=== PATIENT | female | born 1950 | race Caucasian/White ===

== ENCOUNTER → 2023-11-25 17:15 | Outpatient (REF) | payer MEDICARE, SELFPAY ==
[2023-11-25 20:21] LABS: Iron 110 ug/dl (37-170)
[2023-11-25 20:30] LABS: Percent Saturation 28 % (20-50); Total Iron Binding Capacity 380 ug/dl (265-497)
[2023-11-25 20:57] LABS: Ferritin 12.7 ng/ml (11.1-264.0)
== END ==
LOC: CLAB 17:15
PROVIDERS: ATTENDING PHYSICIAN Family Medicine
DX: D64.9 Anemia, unspecified (principal)
CPT/HCPCS: 82728; 83540; 83550

== ENCOUNTER → 2023-12-02 08:48 | Outpatient (REF) | payer MEDICARE, SELFPAY ==
[2023-12-02 09:36] LABS: % Basophils 0.8 % (0-2); % Eosinophils 2.8 % (0-6); % Immature Granulocytes 0.2 % (0-0.5); % Lymphocytes 30.6 % (20.5-51.1); % Monocytes 11.8 % (1.7-9.3); % Neutrophils 53.8 % (42.2-75.2); Absolute Eosinophils 0.2 10^3/uL (0-0.7); Absolute Lymphocytes 1.6 10^3/uL (1.2-3.4); Absolute Monocytes 0.6 10^3/uL (0.1-0.6); Absolute Neutrophils 2.9 10^3/uL (1.4-6.5); Hematocrit 36.9 % (37.0-47.0); Hemoglobin 12.3 g/dL (12.0-16.0); Mean Corp Hgb Conc. 33.3 g/dL (33.0-37.0); Mean Corpuscular Hgb 32.3 pg (27.0-31.0); Mean Corpuscular Volume 96.9 fL (81.0-99.0); Nucleated Red Blood Cells % 0 %; Platelet Count 266 10^3/uL (130-400); Red Blood Cell Count 3.81 10^6/uL (4.20-5.40); Red Cell Dist. Width 13.1 % (11.5-14.5); White Blood Cell Count 5.3 10^3/uL (4.8-10.8)
== END ==
LOC: REG 08:48
PROVIDERS: ATTENDING PHYSICIAN Family Medicine
DX: D64.9 Anemia, unspecified (principal)
CPT/HCPCS: 36415; 85025

== ENCOUNTER → 2023-12-22 15:49 | Outpatient (REF) | payer MEDICARE, SELFPAY ==
[2023-12-22 19:28] LABS: % Basophils 0.6 % (0-2); % Eosinophils 1.5 % (0-6); % Immature Granulocytes 0.4 % (0-0.5); % Lymphocytes 32.7 % (20.5-51.1); % Monocytes 9.1 % (1.7-9.3); % Neutrophils 55.7 % (42.2-75.2); Absolute Eosinophils 0.1 10^3/uL (0-0.7); Absolute Lymphocytes 2.4 10^3/uL (1.2-3.4); Absolute Monocytes 0.7 10^3/uL (0.1-0.6); Hematocrit 39.9 % (37.0-47.0); Hemoglobin 12.6 g/dL (12.0-16.0); Mean Corp Hgb Conc. 31.6 g/dL (33.0-37.0); Mean Corpuscular Hgb 31.4 pg (27.0-31.0); Mean Corpuscular Volume 99.5 fL (81.0-99.0); Mean Platelet Volume 9.2 fL (7.4-10.4); Nucleated Red Blood Cells % 0 %; Platelet Count 341 10^3/uL (130-400); Red Blood Cell Count 4.01 10^6/uL (4.20-5.40); Red Cell Dist. Width 12.9 % (11.5-14.5); White Blood Cell Count 7.2 10^3/uL (4.8-10.8)
== END ==
LOC: CLAB 15:49
PROVIDERS: ATTENDING PHYSICIAN Family Medicine
DX: D64.9 Anemia, unspecified (principal)
CPT/HCPCS: 85025

== ENCOUNTER → 2024-01-21 10:05 | Outpatient (REF) | payer MEDICARE, SELFPAY | LOC: DHCBS HW 10:05 | PROVIDERS: ATTENDING PHYSICIAN Physician Assistant Medical; FAMILY PHYSICIAN Family Medicine | DX: I48.92 Unspecified atrial flutter (principal) | CPT/HCPCS: 93306 ==

== ENCOUNTER → 2024-02-01 09:47 | Outpatient (REF) | payer MEDICARE, SELFPAY | LOC: HWRAD 09:47 | PROVIDERS: ATTENDING PHYSICIAN Internal Medicine Rheumatology; FAMILY PHYSICIAN Family Medicine; REFERRING PHYSICIAN Internal Medicine Hematology & Oncology | DX: Z13.820 Encounter for screening for osteoporosis (principal); M81.0 Age-related osteoporosis without current pathological fracture | CPT/HCPCS: 77080 ==

== ENCOUNTER → 2024-04-08 07:46 | Outpatient (REF) | payer MEDICARE, SELFPAY | LOC: MRI 3T 07:46 | PROVIDERS: ATTENDING PHYSICIAN Orthopaedic Surgery; FAMILY PHYSICIAN Family Medicine | DX: M25.562 Pain in left knee (principal) | CPT/HCPCS: 73721 ==

== ENCOUNTER → 2024-06-03 07:25 | Outpatient (REF) | payer MEDICARE, SELFPAY ==
[2024-06-03 08:19] LABS: % Basophils 0.4 % (0-2); % Eosinophils 4.1 % (0-6); % Immature Granulocytes 0.4 % (0-0.5); % Lymphocytes 34.2 % (20.5-51.1); % Monocytes 11.5 % (1.7-9.3); % Neutrophils 49.4 % (42.2-75.2); Absolute Eosinophils 0.2 10^3/uL (0-0.7); Absolute Lymphocytes 1.7 10^3/uL (1.2-3.4); Absolute Monocytes 0.6 10^3/uL (0.1-0.6); Absolute Neutrophils 2.4 10^3/uL (1.4-6.5); Hematocrit 37.3 % (37.0-47.0); Hemoglobin 12.3 g/dL (12.0-16.0); Mean Corpuscular Hgb 31.1 pg (27.0-31.0); Mean Corpuscular Volume 94.4 fL (81.0-99.0); Mean Platelet Volume 8.9 fL (7.4-10.4); Nucleated Red Blood Cells % 0 %; Platelet Count 283 10^3/uL (130-400); Red Blood Cell Count 3.95 10^6/uL (4.20-5.40); Red Cell Dist. Width 13.8 % (11.5-14.5); White Blood Cell Count 4.9 10^3/uL (4.8-10.8)
[2024-06-03 10:27] LABS: TSH 2.94 uIU/ml (0.47-4.68)
[2024-06-03 10:31] LABS: ALT (SGPT) 19 U/L (0-35); AST (SGOT) 29 U/L (14-36); Albumin 4.2 g/dl (3.5-5.0); Alkaline Phosphatase 63 U/L (38-126); Blood Urea Nitrogen 10 mg/dl (7-17); Calcium 9.7 mg/dl (8.4-10.2); Carbon Dioxide 26 mmol/L (22-30); Chloride 106 mmol/L (98-107); Glucose 101 mg/dl (70-99); HDL Cholesterol 99 mg/dl; LDL Cholesterol, Calculated 113 mg/dl; Potassium 4.1 mmol/L (3.5-5.1); Sodium 139 mmol/L (135-145); Total Bilirubin 0.6 mg/dl (0.2-1.3); Total Cholesterol 237 mg/dl (50-199); Total Protein 6.6 g/dl (6.3-8.2); Triglyceride 125 mg/dl (10-149); Very Low Density Lipoprotein 25 mg/dl (0-30); eGFR > 60.00
[2024-06-03 10:41] LABS: Glycohemoglobin (HgbA1c) 5.8 % (4.0-5.6)
== END ==
LOC: REG 07:25
PROVIDERS: ATTENDING PHYSICIAN Family Medicine; REFERRING PHYSICIAN Internal Medicine Rheumatology
DX: I10 Essential (primary) hypertension (principal); R73.01 Impaired fasting glucose; E78.00 Pure hypercholesterolemia, unspecified; R79.89 Other specified abnormal findings of blood chemistry; D64.9 Anemia, unspecified
CPT/HCPCS: 36415; 80053; 80061; 83036; 84443; 85025

== ENCOUNTER 2024-07-26 08:13 | Inpatient (IN) | payer MEDICARE, SELFPAY ==
[2024-07-06 13:24] VITALS: BMI 27.6
[2024-07-06 14:36] LABS: Hematocrit 37.3 % (37.0-47.0); Hemoglobin 12.2 g/dL (12.0-16.0); Mean Corp Hgb Conc. 32.7 g/dL (33.0-37.0); Mean Corpuscular Hgb 32.3 pg (27.0-31.0); Mean Corpuscular Volume 98.7 fL (81.0-99.0); Mean Platelet Volume 8.9 fL (7.4-10.4); Platelet Count 287 10^3/uL (130-400); Red Blood Cell Count 3.78 10^6/uL (4.20-5.40); Red Cell Dist. Width 13.6 % (11.5-14.5); White Blood Cell Count 5.3 10^3/uL (4.8-10.8)
[2024-07-06 14:51] LABS: ALT (SGPT) 20 U/L (0-35); AST (SGOT) 28 U/L (14-36); Albumin 4.4 g/dl (3.5-5.0); Alkaline Phosphatase 64 U/L (38-126); Blood Urea Nitrogen 15 mg/dl (7-17); Calcium 9.7 mg/dl (8.4-10.2); Carbon Dioxide 23 mmol/L (22-30); Chloride 107 mmol/L (98-107); Estimated Creatinine Clearance 73 ml/min; Glucose 103 mg/dl (70-99); Potassium 4.8 mmol/L (3.5-5.1); Sodium 143 mmol/L (135-145); Total Bilirubin 0.5 mg/dl (0.2-1.3); Total Protein 6.8 g/dl (6.3-8.2); eGFR > 60.00
[2024-07-07 09:03] LABS: Glycohemoglobin (HgbA1c) 5.5 % (4.0-5.6)
--- NOTE | 2024-07-19 13:15 | PTCARENOTE ---
Discussed plan after surgery with patient. Patient requesting [facility] at discharge as she lives alone, son will be coming from out of town to stay with her. Patient inquired about how insurance covers VN and rehab. Patient is anxious regarding
inability to pay for additional help at home and understands she will not likely qualify for rehab stay. She has 1 full flight of stairs into apartment landing and then additional full flight stairs up to apartment.
Patient is aware she will need to make arrangements for OP PT and was reminded to make OP PT appointment as she has not completed at this time. Patient has a borrowed walker and will bring to hospital on day of surgery.
Patient is anticipating [facility] at discharge for VN/PT.
--- NOTE | 2024-07-24 11:36 | VNURNOTE ---
Called patient to explain [facility] services, outpt PT post op her surgery scheduled for 10 SOURAV. No answer, left message. Referral placed in [facility] in case needed.
[2024-07-25 08:38] VITALS: BMI 27.6
[2024-07-26] VITALS (21 sets, daily range): BP systolic 87–159; BP diastolic 62–96; BMI 27.6
[2024-07-26] MEDS: CELEBREX 200 MG PO (08:52)
[2024-07-26] MEDS: TYLENOL 325 MG PO (08:53)
[2024-07-26] MEDS: NORMOSOL-R/PLASMALYTE-A 1000 IV (08:55)
[2024-07-26] MEDS: ROXICODONE 5 MG PO (13:40)
--- NOTE | 2024-07-26 14:31 | W.PN.UPDATE ---
Update Note
Progress Note Update
L knee OA s/p L TKA w/ Dr Burt 07/26/24
DVT prophylaxis - Xarelto at modified dosing, b/l venous foot pumps
- Xarelto 20 mg qPM to be resumed POD 3 if hemodynamically stable
HTN - + parameters - monitor BP
Paroxysmal a fib/a flutter and PVCs - monitor on tele
- Continue Diltiazem
- Xarelto as stated above
GERD and hiatal hernia - add Pepcid HS
Peripheral neuropathy - add Gabapentin TID to accommodate for post-surgical pain
Hypercholesterolemia
MVP
Diverticulosis
Fatty liver disease
DDD
Breast CA s/p L lumpectomy and eventual L mastectomy 2016
Basal cell carcinoma
Choroid melanoma of left eye���
H/o retinal detachment (R-2018, L-12/2023 � s/p surgical repair)
Osteoporosis
Anxiety �
Insomnia
Impaired fasting glucose
LOS COYOTES
[2024-07-26] MEDS: ZOFRAN 4 MG IV (14:59)
[2024-07-26] MEDS: NEURONTIN 200 MG PO (14:59)
[2024-07-26] MEDS: TYLENOL 650 MG PO ×2 (15:00→23:19)
[2024-07-26] MEDS: ANCEF 5 IV (17:00)
[2024-07-26] MEDS: XARELTO 10 MG PO (17:00)
--- NOTE | 2024-07-26 17:14 | CM ---
Met with patient
Multiple concerns with communication pre-op.
IA completed.
Lives alone in [facility] in [place] on the 2nd floor. No elevator, steps to enter, flight of stairs up to apartment.
States that son is not able to stay with her d/t grandson surgery
Stated that she has an outpatient therapy appt in [place] ([facility]) on August 10
Declined PT today -exercises given to patient
PT to evaluate tomorrow and for recommendation-steps?
?LESLIEN in interim until OP
PCP: Braulio Sanchez
Pharmacy: [facility] [id number]
PLAN: ?[facility], outpatient appt Aug 10
[2024-07-26] MEDS: COMPAZINE 5 MG IV (20:30)
[2024-07-26] MEDS: COZAAR 50 MG PO (20:49)
[2024-07-26] MEDS: BACTROBAN 2% OINTMENT 1 APPLIC NASAL (20:50)
[2024-07-26] MEDS: DECADRON 4 MG PO (20:50)
[2024-07-26] MEDS: COLACE 100 MG PO (20:50)
[2024-07-26] MEDS: SENOKOT 17.2 MG PO (20:50)
[2024-07-26] MEDS: TYLENOL PO (20:54)
[2024-07-26] MEDS: NEURONTIN PO (21:00)
[2024-07-26] MEDS: PEPCID 20 MG PO (21:01)
[2024-07-27] MEDS: NEURONTIN PO (00:14)
[2024-07-27] MEDS: VITAMIN D3 (cholecalciferol) PO (00:18)
[2024-07-27] MEDS: NORMOSOL-R/PLASMALYTE-A 1000 IV (00:30)
[2024-07-27] MEDS: ANCEF 5 IV (02:48)
[2024-07-27] MEDS: TYLENOL 650 MG PO ×3 (03:00→12:16)
[2024-07-27 03:24] VITALS: BP 125/66
[2024-07-27 07:12] VITALS: BP 117/68
--- NOTE | 2024-07-27 07:38 | PTCARENOTE ---
Non invasive hgb 11.5 done by night RN Maria Guadalupe jones reported to day shift. Documented by day shift RN.
[2024-07-27] MEDS: COLACE 100 MG PO (08:22)
[2024-07-27] MEDS: NEURONTIN 200 MG PO (08:22)
[2024-07-27] MEDS: SENOKOT 17.2 MG PO (08:22)
[2024-07-27] MEDS: DECADRON 4 MG PO (08:24)
[2024-07-27] MEDS: VITAMIN D3 (cholecalciferol) 50 MCG PO (08:24)
[2024-07-27] MEDS: CARDIZEM CD 120 MG PO (08:24)
[2024-07-27] MEDS: COZAAR PO (08:25)
[2024-07-27] MEDS: BACTROBAN 2% OINTMENT 1 APPLIC NASAL (08:30)
[2024-07-27] MEDS: ULTRAM 50 MG PO (09:58)
[2024-07-27 11:40] VITALS: BP 131/75
[2024-07-27] MEDS: LIDOCAINE 4% PATCH 1 PATCH TOPICAL (12:16)
[2024-07-27 12:30] VITALS: BP 131/75
[2024-07-27 12:49] VITALS: PULSE 91; O2SAT 97
--- NOTE | 2024-07-27 12:51 | W.PN.ORTHO ---
Today's Communication / Plan
-
D/c today since clinically stable, did well w/ PT and OT.
Pt will need VN services/home PT upon d/c d/t current living situation.
Assessment
.
Distal Motor Intact: Yes
Dressing:
Clean, dry and intact.
Assessment:
L knee OA s/p L TKA w/ Dr Burt 07/26/24
DVT prophylaxis - Xarelto at modified dosing, b/l venous foot pumps
- Xarelto 20 mg qPM to be resumed POD 3 since hemodynamically stable
- Pt reports she does have 10 mg Xarelto tabs at home
HTN - + parameters - BPs stable
Paroxysmal a fib/a flutter and PVCs - maintaining NSR on tele
- Continue Diltiazem
- Xarelto as stated above
GERD and hiatal hernia - added Pepcid HS
Peripheral neuropathy - added Gabapentin TID to accommodate for post-surgical pain
Hypercholesterolemia
MVP
Diverticulosis
Fatty liver disease
DDD
Breast CA s/p L lumpectomy and eventual L mastectomy 2016
Basal cell carcinoma
Choroid melanoma of left eye���
H/o retinal detachment (R-2018, L-12/2023 � s/p surgical repair)
Osteoporosis
Anxiety �
Insomnia
Impaired fasting glucose
[place]
Plan
.
Surgery / Date: L TKA w/ Dr Burt 07/26/24
DVT Prophylaxis: Other (Xarelto )
Activity:
Out of bed.
PT/OT
Discharge Plan: Home w/ VN
Subjective
.
.:
Patient resting comfortably in her chair.
L knee pain well controlled w/ current pain meds.
N/V yesterday, likely 2* Oxycodone. Improved w/ anti-emetics, switch to Tramadol.
Denies any other new significant complaints.
Vital Signs and Labs
.
Vital Signs and Labs:
Lab Results
07/06/24 13:22
07/06/24 13:21
Temp Pulse Resp BP Pulse Ox
97.5 F 89 16 131/75 97
07/27/24 11:40 07/27/24 11:40 07/27/24 11:40 07/27/24 11:40 07/27/24 11:40
Non-invasive Hgb result: 11.5
Physical Exam
-
HEENT: No pallor, cyanosis, or jaundice. Throat clear.
NECK: Supple. No JVD.
RESPIRATORY: Lungs clear to auscultation.
CVS: S1, S2 normal. RRR.
ABDOMEN: Soft, non-tender. No distension.
EXTREMITIES: Expected post-surgical L knee edema. Strength equal, no calf pain with palpation/dorsiflexion. Calves soft.
UNDERWATER HUNTER: AOx3. No focal deficits. steamfitter supervisor grossly intact
--- NOTE | 2024-07-27 13:12 | W.DS.TRANS ---
DC Summary - Rn Staffing
-
Discharge Instructions:
Sleep Apnea Risk Low
Discharge Diagnosis/Procedures L knee OA s/p L TKA w/ Dr Burt 07/26/24
Diet Other diet
Additional Diets Diabetic carb controlled x1 week for wound
healing/infection prevention
Activity As tolerated,With Walker
Driving Restrictions Not until seen by your Dr
Bathing Restrictions OK to Shower
Other Services PT,VN
Wound Care Dressing to be removed 1 week post-surgery
Instructions:
Stand-Alone Forms: Total Hip/Knee Replacement D/C
Changes to Home Medications: Yes
Discharge Medications:
DC Medications w/original date entered in [facility]
cholecalciferol (vitamin D3) 50 mcg (2,000 unit) tablet 2,000 unit PO DAILY Supplement 03/19/17
glucosamine MSl-M8-Kixnojpho britton 1,500 mg-400 unit-100 mg tablet (Osteo Bi-Flex (5-Loxin)) 1 ea PO DAILY Supplement 03/19/17
hmxgjqri-krl-iaegr acid 0.4 mg-lycopene 300 mcg-lutein 250 mcg tablet (Centrum Silver) 1 ea PO DAILY Supplement 03/19/17
alpha lipoic acid 200 mg capsule 200 mg PO DAILY Supplement 04/13/21
ascorbic acid (vitamin C) 1,000 mg tablet (Vitamin C) 1,000 mg PO DAILY Supplement 04/13/21
biotin 10,000 mcg capsule 10,000 mcg PO DAILY Supplement 04/13/21
calcium 600 mg (as carbonate)-vitamin D3 62.5 mcg (2,500 unit) capsule 2 ea PO DAILY Supplement 04/13/21
diltiazem HCl 120 mg capsule,extended release 24 hr (Cardizem CD) 120 mg PO DAILY #30 caps 10/17/23
Tumeric 1 dose PO DAILY Supplement 07/19/24
aflibercept 2 mg/0.05 mL intravitreal solution for injection (Eylea) 2 mg intravitreal ONCE Antineoplastic Agent 07/19/24
alendronate 70 mg tablet 70 mg PO QWEEK BONE 07/19/24
peg 400-propylene glycol 0.4 %-0.3 % eye drops (Systane (propylene glycol)) 1 drp ophthalmic (eye) DAILY PRN irritation 07/19/24
rivaroxaban 20 mg tablet (Xarelto) 20 mg PO DAILY Blood Clot Prevention/Tx 07/19/24
mupirocin 2 % topical ointment 1 applic topical BID Infection 07/20/24
acetaminophen 500 mg tablet 1,000 mg (2 x 500 mg) PO Q6H #30 tabs 07/27/24
cetirizine 10 mg tablet (Zyrtec) 10 mg PO DAILY PRN allergies #0 tabs 07/27/24
dexamethasone 4 mg tablet 4 mg PO Q12 Anti-inflammatory #7 tabs 07/27/24
docusate sodium 100 mg capsule 100 mg PO BID #30 caps 07/27/24
gabapentin 100 mg capsule 200 mg (2 x 100 mg) PO TID neuropathic pain #30 caps 07/27/24
lidocaine 4 % topical patch 2 patch topical DAILY #30 ea 07/27/24
lorazepam 1 mg tablet 1 mg PO HS PRN sleep #0 tabs 07/27/24
losartan 50 mg tablet 50 mg PO BID Blood Pressure #0 tabs 07/27/24
prochlorperazine maleate 5 mg tablet 5 mg PO Q8H PRN nausea and vomiting #30 tabs 07/27/24
rivaroxaban 10 mg tablet (Xarelto) 10 mg PO QPM #2 tabs 07/27/24
sennosides 8.6 mg tablet (Senna Laxative) 17.2 mg (2 x 8.6 mg) PO BID #30 tabs 07/27/24
tramadol 50 mg tablet 50 - 100 mg (1 - 2 x 50 mg) PO Q6H PRN moderate-severe pain #30 tabs 07/27/24
Home Medication Changes
acetaminophen 500 mg tablet 1,000 mg (2 x 500 mg) PO Q6H #30 tabs 07/27/24
dexamethasone 4 mg tablet 4 mg PO Q12 Anti-inflammatory #7 tabs 07/27/24
docusate sodium 100 mg capsule 100 mg PO BID #30 caps 07/27/24
gabapentin 100 mg capsule 200 mg (2 x 100 mg) PO TID neuropathic pain #30 caps 07/27/24
lidocaine 4 % topical patch 2 patch topical DAILY #30 ea 07/27/24
lorazepam 1 mg tablet 1 mg PO HS PRN sleep #0 tabs 07/27/24
prochlorperazine maleate 5 mg tablet 5 mg PO Q8H PRN nausea and vomiting #30 tabs 07/27/24
rivaroxaban 10 mg tablet (Xarelto) 10 mg PO QPM #2 tabs 07/27/24
sennosides 8.6 mg tablet (Senna Laxative) 17.2 mg (2 x 8.6 mg) PO BID #30 tabs 07/27/24
tramadol 50 mg tablet 50 - 100 mg (1 - 2 x 50 mg) PO Q6H PRN moderate-severe pain #30 tabs 07/27/24
Pending Results: No
--- NOTE | 2024-07-27 14:47 | CM ---
entered order for dc.
Spoke with pt in room after PT saw her.
VN set up to see pt.
Pt has out pt PT set up for Aug 10.
Her son Jose Juan will drive her home.
[facility]
== END 2024-07-27 13:53 | disposition home health service (06) | DRG 470 ==
LOC: 2 SOUTH 08:13
PROVIDERS: ADMITTING PHYSICIAN Orthopaedic Surgery; FAMILY PHYSICIAN Family Medicine; REFERRING PHYSICIAN Internal Medicine Cardiovascular Disease
PROC: 0SRD0J9 Replacement of Left Knee Joint with Synthetic Substitute, Cemented, Open Approach (ICD-10-PCS; 2024-07-26)
DX: M17.12 Unilateral primary osteoarthritis, left knee (principal); I48.0 Paroxysmal atrial fibrillation; K21.9 Gastro-esophageal reflux disease without esophagitis; G62.9 Polyneuropathy, unspecified
CPT/HCPCS: 36415; 73560; 80053; 83036; 85027; 87070; 97116; 97163; 97166; 97535; C1713; C1776

== ENCOUNTER → 2024-09-13 08:31 | Outpatient (REF) | payer MEDICARE, SELFPAY ==
[2024-09-13 10:06] LABS: % Basophils 0.8 % (0-2); % Eosinophils 2.2 % (0-6); % Lymphocytes 38.4 % (20.5-51.1); % Neutrophils 49.6 % (42.2-75.2); Absolute Eosinophils 0.1 10^3/uL (0-0.7); Absolute Lymphocytes 1.9 10^3/uL (1.2-3.4); Absolute Monocytes 0.4 10^3/uL (0.1-0.6); Absolute Neutrophils 2.4 10^3/uL (1.4-6.5); Hematocrit 38.5 % (37.0-47.0); Hemoglobin 11.9 g/dL (12.0-16.0); Mean Corp Hgb Conc. 30.9 g/dL (33.0-37.0); Mean Corpuscular Hgb 30.8 pg (27.0-31.0); Mean Corpuscular Volume 99.7 fL (81.0-99.0); Mean Platelet Volume 8.8 fL (7.4-10.4); Nucleated Red Blood Cells % 0 %; Platelet Count 290 10^3/uL (130-400); Red Blood Cell Count 3.86 10^6/uL (4.20-5.40); Red Cell Dist. Width 13.2 % (11.5-14.5); White Blood Cell Count 4.9 10^3/uL (4.8-10.8)
[2024-09-13 11:21] LABS: ALT (SGPT) 16 U/L (0-35); AST (SGOT) 24 U/L (14-36); Albumin 4.3 g/dl (3.5-5.0); Alkaline Phosphatase 52 U/L (38-126); Blood Urea Nitrogen 10 mg/dl (7-17); Calcium 9.3 mg/dl (8.4-10.2); Carbon Dioxide 27 mmol/L (22-30); Chloride 106 mmol/L (98-107); Glucose 96 mg/dl (70-99); Sodium 143 mmol/L (135-145); Total Bilirubin 0.4 mg/dl (0.2-1.3); Total Protein 6.6 g/dl (6.3-8.2); eGFR > 60.00
[2024-09-13 11:25] LABS: C-Reactive Protein < 5.00 mg/L (0.0-10.00)
[2024-09-13 12:21] LABS: Erythrocyte Sed Rate 12 mm/hour (0-20)
== END ==
LOC: REG 08:31
PROVIDERS: ATTENDING PHYSICIAN Internal Medicine Rheumatology; FAMILY PHYSICIAN Family Medicine
DX: M81.0 Age-related osteoporosis without current pathological fracture (principal); Z51.81 Encounter for therapeutic drug level monitoring
CPT/HCPCS: 36415; 80053; 85025; 85652; 86140

== ENCOUNTER → 2025-03-06 07:15 | Outpatient (REF) | payer MEDICARE, SELFPAY ==
[2025-03-06 10:19] LABS: % Basophils 0.9 % (0-2); % Eosinophils 1.5 % (0-6); % Immature Granulocytes 0.2 % (0-0.5); % Lymphocytes 23.9 % (20.5-51.1); % Monocytes 10.3 % (1.7-9.3); % Neutrophils 63.2 % (42.2-75.2); Absolute Eosinophils 0.1 10^3/uL (0-0.7); Absolute Lymphocytes 1.1 10^3/uL (1.2-3.4); Absolute Monocytes 0.5 10^3/uL (0.1-0.6); Absolute Neutrophils 2.9 10^3/uL (1.4-6.5); Hemoglobin 11.8 g/dL (12.0-16.0); Mean Corp Hgb Conc. 31.9 g/dL (33.0-37.0); Mean Corpuscular Hgb 30.7 pg (27.0-31.0); Mean Corpuscular Volume 96.4 fL (81.0-99.0); Mean Platelet Volume 9.3 fL (7.4-10.4); Nucleated Red Blood Cells % 0 %; Platelet Count 270 10^3/uL (130-400); Red Blood Cell Count 3.84 10^6/uL (4.20-5.40); White Blood Cell Count 4.7 10^3/uL (4.8-10.8)
[2025-03-06 10:55] LABS: ALT (SGPT) 14 U/L (0-35); AST (SGOT) 23 U/L (14-36); Albumin 4.5 g/dl (3.5-5.0); Alkaline Phosphatase 56 U/L (38-126); Blood Urea Nitrogen 15 mg/dl (7-17); Calcium 10.1 mg/dl (8.4-10.2); Carbon Dioxide 26 mmol/L (22-30); Chloride 109 mmol/L (98-107); Glucose 110 mg/dl (70-99); Potassium 4.4 mmol/L (3.5-5.1); Sodium 143 mmol/L (135-145); Total Bilirubin 0.6 mg/dl (0.2-1.3); eGFR > 60.00
== END ==
LOC: REG 07:15
PROVIDERS: ATTENDING PHYSICIAN Internal Medicine Rheumatology; FAMILY PHYSICIAN Family Medicine
DX: M25.50 Pain in unspecified joint (principal); M81.0 Age-related osteoporosis without current pathological fracture; Z51.81 Encounter for therapeutic drug level monitoring; Z68.31 Body mass index [BMI] 31.0-31.9, adult; Z85.3 Personal history of malignant neoplasm of breast
CPT/HCPCS: 36415; 80053; 85025

== ENCOUNTER → 2025-06-02 07:27 | Outpatient (REF) | payer MEDICARE, SELFPAY ==
[2025-06-02 09:13] LABS: ALT (SGPT) 15 U/L (0-35); AST (SGOT) 23 U/L (14-36); Albumin 4.2 g/dl (3.5-5.0); Alkaline Phosphatase 53 U/L (38-126); Blood Urea Nitrogen 12 mg/dl (7-17); Calcium 9.7 mg/dl (8.4-10.2); Carbon Dioxide 28 mmol/L (22-30); Chloride 106 mmol/L (98-107); Glucose 111 mg/dl (70-99); HDL Cholesterol 89 mg/dl; LDL Cholesterol, Calculated 93 mg/dl; Potassium 4.3 mmol/L (3.5-5.1); Sodium 141 mmol/L (135-145); Total Protein 6.6 g/dl (6.3-8.2); Very Low Density Lipoprotein 23 mg/dl (0-30); eGFR > 60.00
[2025-06-02 11:11] LABS: Glycohemoglobin (HgbA1c) 5.6 % (4.0-5.6)
== END ==
LOC: REG 07:27
PROVIDERS: ATTENDING PHYSICIAN Family Medicine
DX: R73.01 Impaired fasting glucose (principal); I10 Essential (primary) hypertension; E78.00 Pure hypercholesterolemia, unspecified
CPT/HCPCS: 36415; 80053; 80061; 83036

== ENCOUNTER → 2025-06-22 15:59 | Outpatient (REF) | payer MEDICARE, SELFPAY ==
[2025-06-22 16:28] LABS: Hematocrit 38.6 % (37.0-47.0); Hemoglobin 12.0 g/dL (12.0-16.0); Mean Corp Hgb Conc. 31.1 g/dL (33.0-37.0); Mean Corpuscular Volume 99.5 fL (81.0-99.0); Nucleated Red Blood Cells % 0 %; Platelet Count 282 10^3/uL (130-400); Red Cell Dist. Width 13.2 % (11.5-14.5)
[2025-06-22 17:18] LABS: Iron 106 ug/dl (37-170)
[2025-06-22 17:28] LABS: Total Iron Binding Capacity 438 ug/dl (265-497)
[2025-06-22 23:49] LABS: Ferritin 10.0 ng/ml (11.1-264.0)
[2025-06-23 00:20] LABS: Folate > 20.0 ng/ml (2.76-20); Vitamin B12 751 pg/ml (239-931)
== END ==
LOC: CLAB 15:59
PROVIDERS: ATTENDING PHYSICIAN Family Medicine
DX: D64.9 Anemia, unspecified (principal); Z79.899 Other long term (current) drug therapy
CPT/HCPCS: 82607; 82728; 82746; 83540; 83550; 84155; 84165; 85025

== ENCOUNTER → 2025-08-04 07:40 | Outpatient (REF) | payer MEDICARE, SELFPAY ==
[2025-08-04 08:30] LABS: Hematocrit 39.0 % (37.0-47.0); Hemoglobin 12.5 g/dL (12.0-16.0); Mean Corp Hgb Conc. 32.1 g/dL (33.0-37.0); Mean Corpuscular Volume 97.7 fL (81.0-99.0); Nucleated Red Blood Cells % 0 %; Platelet Count 250 10^3/uL (130-400); Red Cell Dist. Width 13.0 % (11.5-14.5)
[2025-08-04 08:55] LABS: ALT (SGPT) 16 U/L (0-35); AST (SGOT) 23 U/L (14-36); Albumin 4.2 g/dl (3.5-5.0); Alkaline Phosphatase 50 U/L (38-126); Blood Urea Nitrogen 10 mg/dl (7-17); Calcium 9.5 mg/dl (8.4-10.2); Carbon Dioxide 29 mmol/L (22-30); Chloride 106 mmol/L (98-107); Glucose 108 mg/dl (70-99); Potassium 4.2 mmol/L (3.5-5.1); Sodium 142 mmol/L (135-145); Total Protein 6.6 g/dl (6.3-8.2); eGFR > 60.00
== END ==
LOC: REG 07:40
PROVIDERS: ATTENDING PHYSICIAN Surgery Surgical Oncology; FAMILY PHYSICIAN Family Medicine
DX: Z01.818 Encounter for other preprocedural examination (principal)
CPT/HCPCS: 36415; 80053; 85025

== ENCOUNTER 2025-10-17 09:58 | Outpatient (RCR) | payer MEDICARE, SELFPAY | END 2025-10-17 23:59 | disposition home or self-care (01) | LOC: RPT 09:58 | PROVIDERS: ATTENDING PHYSICIAN Internal Medicine Hematology & Oncology; FAMILY PHYSICIAN Family Medicine | DX: I97.2 Postmastectomy lymphedema syndrome (principal); C50.411 Malignant neoplasm of upper-outer quadrant of right female breast (principal); M81.0 Age-related osteoporosis without current pathological fracture; Z79.811 Long term (current) use of aromatase inhibitors; Z73.6 Limitation of activities due to disability; R26.89 Other abnormalities of gait and mobility | CPT/HCPCS: 97110; 97112; 97140; 97162; 97530 ==